=== PATIENT | male | born 1980 | race Caucasian/White ===

== ENCOUNTER 2019-09-23 18:27 | Emergency (ER) | payer MEDICAID ==
[~2019-09-23] VITALS: Ht 160 cm; Wt 57.0 kg
[2019-09-23 18:27] VITALS: BP 123/86
--- NOTE | 2019-09-23 18:27 | NUR ---
BIB [facility]-Pt being released from custody at [facility]. Pt placed on legal [facility] Legal hold reason stated that pt is not currently taking his medications and is paranoid as well as not having a plan on a place to stay. Pt currently appears mildly manic but cooperative with staff. Pt placed all his belongings and clothing into one bag that this RN labeled with pt info and secured in locker. Pt provided hospital gown to wear which he tied around his waist, stating that he did not want it over his shoulders. Pt requesting to have gurney removed from room and mattress placed on the floor. This RN removed gurney from room per pt request. Pt's room is secured, all safety measures observed. Pt entered bathroom and washed his hair in the sink, requesting toothbrush and toothpaste. This RN advised pt that he needs to be evaluated by the ER provider and then will be allowed to shower and perform oral hygiene if he would like to. Pt agreeable to this. Pt denies SI/HI at this time. POC discussed with pt. He verbalizes understanding and denies other needs.
--- NOTE | 2019-09-23 18:59 | NUR ---
Report to Katelin BARLOW.
--- NOTE | 2019-09-23 18:59 | NUR ---
Per social work supervisor, pa, and md collaboration, pt tbdc. Awaiting d/c orders to give pt belongings.
== END 2019-09-23 19:19 | disposition home or self-care (01) ==
LOC: ED 19:15
DX: F41.9 Anxiety disorder, unspecified (principal); Z72.9 Problem related to lifestyle, unspecified
CPT/HCPCS: 99283

== ENCOUNTER 2019-10-06 16:32 | Emergency (ER) | payer MEDICAID ==
[~2019-10-06] VITALS: Ht 167.6 cm; Wt 67.0 kg
[2019-10-06 16:36] VITALS: BP 127/78
--- NOTE | 2019-10-06 17:08 | NUR ---
PT FEELING SUICIDAL WITH HIGHLY LETHAL PLAN- STATES HE WANTS TO LAY ON THE TRAIN TRACKS. PT STATES HE IS FEELING DEPRESSED AND SUICIDAL AND LIKE HE WANTS TO END HIS LIFE. DENIES PAST MEDICAL HX AND PINA DRUG USE. PT TALKING AT FAST PACE AND SMILING WHILE DISCUSSING SUICIDE PLAN. PT CHANGED INTO GOWN- ALL BELONGINGS (ONE BAG) PLACED INTO SECURE LOCKER. ROOM [facility], SITTER IN HALLWAY. PT HAS VOIDED, URINE COLLECTED. PT SITTING ON GURNEY. STATES HE DOES NOT WANT A BLANKET OR WATER WHEN BOTH HAVE BEEN OFFERED BUT IS ASKING FOR FOOD. WILL ORDER FOOD WHEN OKAY'D BY . PT DENIES FURTHER NEEDS AT THIS TIME. NELLIE.
--- NOTE | 2019-10-06 17:56 | NUR ---
MD AT BEDSIDE ASSESSING PT NOW.
--- NOTE | 2019-10-06 18:09 | NUR ---
FABRICATION ENGINEER AT BEDSIDE NOW. FOOD ORDERED FOR PT.
--- NOTE | 2019-10-06 18:17 | NUR ---
PT PROVIDED WITH DINNER TRAY AT THIS TIME. BREATHYLIZED. SITTER AT BEDSIDE. ROOM SECURE. PT DENIES FURTHER NEEDS.
[2019-10-06 18:35] LABS: AMPHETAMINE SCREEN, URINE Negative (Negative); BARBITURATE SCREEN, URINE Negative (Negative); BENZODIAZEPINE SCREEN, URINE Negative (Negative); CANNABINOID SCREEN, URINE Positive (Negative); COCAINE SCREEN, URINE Negative (Negative); METHADONE SCREEN, URINE Negative (Negative); OPIATE SCREEN, URINE Negative (Negative)
[2019-10-06 18:41] LABS: MEAN CORPUSCULAR HEMOGLOBIN 31.4 pg (27.5-34.5); MEAN CORPUSCULAR VOLUME 95.3 fL (81-97); MEAN PLATELET VOLUME 7.8 fL (7.4-10.4); PLATELET COUNT 411 x10^3/uL (130-400); RED BLOOD COUNT 4.14 x10^6/uL (4.38-5.82); RED CELL DISTRIBUTION WIDTH 15.7 % (9.4-14.8)
[2019-10-06 18:48] LABS: ALBUMIN 3.6 g/dL (3.4-5.0); ANION GAP 7 mmol/L (5-15); CALCIUM 8.9 mg/dL (8.5-10.1); CHLORIDE 105 mmol/L (98-107); CREATININE 0.85 mg/dL (0.7-1.3)
[2019-10-06 18:59] LABS: SALICYLATE LEVEL < 1.7 mg/dL (2.8-20.0)
--- NOTE | 2019-10-06 19:03 | NUR ---
REPORT GIVEN TO CAIN LAUREN.
[2019-10-06 19:08] LABS: BASOPHILS # (AUTO) 0.06 x10^3/uL (0-0.1); BASOPHILS % (AUTO) 1 % (0-1); EOSINOPHILS % (AUTO) 2 % (1-7); LYMPHOCYTES # (AUTO) 2.28 x10^3/uL (1-3.4); LYMPHOCYTES % (AUTO) 20 % (22-44); MD SCAN; MONOCYTES # (AUTO) 0.71 x10^3/uL (0.2-0.8); MONOCYTES % (AUTO) 6 % (2-9); NEUTROPHILS % (AUTO) 72 % (42-75)
--- NOTE | 2019-10-06 23:10 | NUR ---
3E unable to auth patients insurance. Patient's info faxed to [facility], , and [facility] as patient has medicaid [facility].
--- NOTE | 2019-10-07 00:14 | NUR ---
Attempted twice to call [facility] for [facility] but was unsuccessful, no answer, only dial tone at the end of the call.
--- NOTE | 2019-10-07 00:51 | NUR ---
IVETTE auth [id number]
== END 2019-10-07 02:23 ==
LOC: ED 18:32
DX: F33.3 Major depressive disorder, recurrent, severe with psychotic symptoms (principal); F12.159 Cannabis abuse with psychotic disorder, unspecified; F17.210 Nicotine dependence, cigarettes, uncomplicated
CPT/HCPCS: 99285

== ENCOUNTER 2019-11-12 05:31 | Emergency (ER) | payer MEDICAID ==
[~2019-11-12] VITALS: Ht 177.8 cm; Wt 66.5 kg
--- NOTE | 2019-11-12 05:43 | NUR ---
DR. GUADARRAMA IN TO EVAL PT. PT. TO ED WITH C/O "NEED MY MEDS". PT. REPORTS DEPRESSION; DENIES SI/HI. STATES "I JUST NEED TO GET MY MEDS AND I DON'T THINK [facility] IS OPEN RIGHT NOW, I JUST NEED TO TALK TO A PSYCH DR." UNABLE TO PLACE PT. ON MONITORS AT THIS TIME PT. UNABLE TO FOCUS WHILE MD EVALUATING.
--- NOTE | 2019-11-12 05:50 | NUR ---
TECH TO BS FOR EKG. PT. STATES "YOU'RE NOT PUTTING THOSE MONITORS ON ME, I CAN REFUSE THEM." DISCUSSED NEED FOR EKG WITH PT. HR IS 136 IN TRAIGE; PT. AGREEABLE TO EKG BUT STATES "I STILL DON'T WANT THOSE ON ME." PT. RESTLESS AND MOVING AROUND NON-STOP. ALL BELONGINGS REMOVED AND PT. PLACED INTO GOWN. PT. AWARE OF NEED FOR URINE SAMPLE.
--- NOTE | 2019-11-12 05:52 | NUR ---
PT. CHANGED HIS STORY WHILE DR. GUADARRAMA AT AND IS NOW STATING THAT HE WISHES "TO LAY ON THE TRAIN TRACKS". STATES SI. "I JUST DIDN'T KNOW HOW TO SAY IT TO YOU BEFORE."
--- NOTE | 2019-11-12 05:59 | NUR ---
PT. REPORTS DRINKING A FEW BEERS TONIGHT; BREATHALYZER 0.063%. PT. STATES HE IS HOMELESS WITH NO JOB. DENIES ANY HX OF SA BUT STATES SI IN THE PAST. STATES "I JUST MOVED HERE FROM [place]". WHEN PT. QUESTIONED ABOUT PAST VISITS TO INCLUDE LATE SEPTEMBER HE STATES "WELL I WENT TO [place] FOR A FEW DAYS". PT. POOR HISTORIAN AND DOES NOT ANSWER STRAIGHT FORWARD QUESTIONS BY STAFF. EKG WAS DONE AND PRESENTED TO DR. GUADARRAMA. PT. CONTINUES TO REFUSE MONITORS DESPITE EXPLANATION. SITTER IN [place].
--- NOTE | 2019-11-12 06:08 | NUR ---
2 BAGS OF BELONGINGS LABELED AND PLACED IN LOCKER.
[2019-11-12 06:26] LABS: BASOPHILS # (AUTO) 0.02 x10^3/uL (0-0.1); BASOPHILS % (AUTO) 0 % (0-1); EOSINOPHILS % (AUTO) 0 % (1-7); LYMPHOCYTES # (AUTO) 0.95 x10^3/uL (1-3.4); LYMPHOCYTES % (AUTO) 14 % (22-44); MD NO; MEAN CORPUSCULAR HEMOGLOBIN 31.3 pg (27.5-34.5); MEAN CORPUSCULAR HGB CONC 33.1 g/dL (33.2-36.2); MEAN CORPUSCULAR VOLUME 94.6 fL (81-97); MONOCYTES # (AUTO) 0.33 x10^3/uL (0.2-0.8); MONOCYTES % (AUTO) 5 % (2-9); NEUTROPHILS # (AUTO) 5.49 x10^3/uL (1.8-6.8); NEUTROPHILS % (AUTO) 81 % (42-75); PLATELET COUNT 467 x10^3/uL (130-400); RED BLOOD COUNT 4.44 x10^6/uL (4.38-5.82); RED CELL DISTRIBUTION WIDTH 14.1 % (9.4-14.8)
--- NOTE | 2019-11-12 06:32 | NUR ---
PT. AGAIN ENCOURAGED TO PROVIDE URINE SAMPLE. WATER PROVIDED.
[2019-11-12 06:33] LABS: ALANINE AMINOTRANSFERASE 23 U/L (12-78); ANION GAP 9 mmol/L (5-15); CALCIUM 8.7 mg/dL (8.5-10.1); CHLORIDE 110 mmol/L (98-107); CREATININE 0.98 mg/dL (0.7-1.3); SALICYLATE LEVEL 1.8 mg/dL (2.8-20.0)
[2019-11-12 06:35] LABS: ALKALINE PHOSPHATASE 81 U/L (45-117); BILIRUBIN,TOTAL 0.3 mg/dL (0.2-1.0); TOTAL PROTEIN 7.9 g/dL (6.4-8.2)
--- NOTE | 2019-11-12 07:10 | NUR ---
BS REPORT TO CAIN CARTER. PT. AGAIN ENCOURAGED TO PROVIDE URINE SAMPLE. ADELAIDATER REMAINS IN [place].
--- NOTE | 2019-11-12 08:52 | NUR ---
PT PROVIDED WITH ADDITIONAL WATER IN EFFORTS TO OBATIN URINE SAMPLE. PT FREQUENLTY REMINDED OF NEED FOR URINE
--- NOTE | 2019-11-12 10:00 | NUR ---
UDS COLLECTED AND SENT TO LAB, PT OFFERED MEAL TRAY, PT DECLINED AT THIS TIME WILL WAIT FOR LUNCH. PT WITH SITTER IN VIEW OF PT. PT WITH NO NEEDS AT THIS TIME
[2019-11-12 10:12] LABS: AMPHETAMINE SCREEN, URINE Positive (Negative); BARBITURATE SCREEN, URINE Negative (Negative); BENZODIAZEPINE SCREEN, URINE Negative (Negative); CANNABINOID SCREEN, URINE Positive (Negative); COCAINE SCREEN, URINE Negative (Negative); METHADONE SCREEN, URINE Negative (Negative); OPIATE SCREEN, URINE Negative (Negative)
[2019-11-12] MEDS ORDERED: QUETIAPINE 100MG TABLET PO SCH (13:30)
--- NOTE | 2019-11-12 13:38 | NUR ---
JO VIRK IN TO EVAL PT, LH CONTINUED. PT ATE ALL OF MEAL TRAY
[2019-11-12] MEDS ORDERED: QUETIAPINE 100MG TABLET ONE (14:22)
--- NOTE | 2019-11-12 14:31 | NUR ---
PT REFUSING PO SEROQUEL ORDERED B PSYCH TANK OFFICER.
--- NOTE | 2019-11-12 16:45 | NUR ---
JO VIRK UPDATED ON PT REFUSAL OF MEDICATIONS. NAD NOTED AT THIS TIME. MEAL TRAY ORDERED FOR PT
--- NOTE | 2019-11-12 19:16 | NUR ---
Pt awake and resting on gurney. Pt denied offer for blanket.
--- NOTE | 2019-11-12 20:13 | NUR ---
3E UNABLE TO GET PRIOR AUTH AT THIS TIME PER JUDE BHAT. WILL FAX TO OTHER FACILITIES AT THIS TIME.
--- NOTE | 2019-11-12 20:18 | NUR ---
Attempted to call number and for insurance prior authoriation, no answer and dial tone at the end.
--- NOTE | 2019-11-12 20:22 | NUR ---
PACKET FAXED TO [facility] AND [facility] PATIENT HAS MEDICAID [place]ZABEL TREVIÑO
--- NOTE | 2019-11-12 20:51 | NUR ---
Pt continues to repositon self as needed. Sitter at bedside. Pt has refused multiple offers for blankets.
--- NOTE | 2019-11-12 22:35 | NUR ---
Pt resting on gurney. No distress noted. Sitter remains outside of room.
--- NOTE | 2019-11-12 22:46 | NUR ---
JAVIER FROM [facility] CALLED AND DR MAR WILL ACCEPT. PT TO BE TRANSPORTED AT 0100
--- NOTE | 2019-11-12 23:08 | NUR ---
HILARIO and [facility] called as patient has medicaid [facility]. Patient placed in will call until 1am as that is what [facility] asked for. Awaiting auth code from [facility] still.
[2019-11-12 23:22] VITALS: BP 119/52
--- NOTE | 2019-11-12 23:22 | NUR ---
Pt alert and sitting up on gurney. Pt cooperative with VS check. Sitter remains in view of pt.
--- NOTE | 2019-11-13 00:46 | NUR ---
Pt seen repositioning himself as needed. Pt cooperative with staff. Sitter remains in view of pt.
--- NOTE | 2019-11-13 01:00 | NUR ---
Called [facility] and no auth code yet from [facility]. Called [facility] and they have all patients info and will call [facility] TEO.
--- NOTE | 2019-11-13 01:11 | NUR ---
[facility] auth code: [id number], ETA [id number].
--- NOTE | 2019-11-13 01:28 | NUR ---
Pt remains awake and alert on gurney. Sitter remains in view of pt.
--- NOTE | 2019-11-13 03:15 | NUR ---
Pt transferred to [facility] via [facility]. Report given to [facility] paramedics. Pt awake, alert and ambulatory. Pt belongings given to [facility] regulator inspector. Pt ambulated out of ER with paramedics.
== END 2019-11-13 03:18 | disposition home or self-care (01) ==
LOC: ED 06:22
DX: F33.9 Major depressive disorder, recurrent, unspecified (principal); F15.14 Other stimulant abuse with stimulant-induced mood disorder; R00.0 Tachycardia, unspecified; F17.200 Nicotine dependence, unspecified, uncomplicated
CPT/HCPCS: 36415; 80053; 80307; 85025; 93005; 99284

== ENCOUNTER 2019-11-27 17:52 | Emergency (ER) | payer MEDICAID ==
[~2019-11-27] VITALS: Ht 165.1 cm; Wt 80.0 kg
[2019-11-27 18:11] VITALS: BP 111/76
--- NOTE | 2019-11-27 18:23 | NUR ---
PT PLACED IN ROOM WITH ALL SUPPLIES SECURED BEHIND PULL DOWN DOORS AND BELONGINGS SECURED. PT IN VIEW OF SITTER.
[2019-11-27] MEDS ORDERED: LORazepam 1MG TABLET PO ONE (18:30)
[2019-11-27 18:53] LABS: ALANINE AMINOTRANSFERASE 33 U/L (12-78); ALBUMIN 3.6 g/dL (3.4-5.0); ANION GAP 3 mmol/L (5-15); BASOPHILS # (AUTO) 0.04 x10^3/uL (0-0.1); BASOPHILS % (AUTO) 0 % (0-1); CALCIUM 8.6 mg/dL (8.5-10.1); CHLORIDE 109 mmol/L (98-107); EOSINOPHILS # (AUTO) 0.13 x10^3/uL (0-0.4); EOSINOPHILS % (AUTO) 1 % (1-7); LYMPHOCYTES # (AUTO) 1.75 x10^3/uL (1-3.4); LYMPHOCYTES % (AUTO) 17 % (22-44); MD NO; MEAN CORPUSCULAR HEMOGLOBIN 30.8 pg (27.5-34.5); MEAN CORPUSCULAR HGB CONC 33.4 g/dL (33.2-36.2); MEAN CORPUSCULAR VOLUME 92.1 fL (81-97); MEAN PLATELET VOLUME 7.7 fL (7.4-10.4); MONOCYTES # (AUTO) 0.58 x10^3/uL (0.2-0.8); MONOCYTES % (AUTO) 6 % (2-9); NEUTROPHILS % (AUTO) 75 % (42-75); PLATELET COUNT 492 x10^3/uL (130-400); RED BLOOD COUNT 4.71 x10^6/uL (4.38-5.82); RED CELL DISTRIBUTION WIDTH 13.8 % (9.4-14.8); SALICYLATE LEVEL < 1.7 mg/dL (2.8-20.0)
[2019-11-27 18:55] LABS: ALKALINE PHOSPHATASE 81 U/L (45-117); BILIRUBIN,TOTAL 0.2 mg/dL (0.2-1.0); TOTAL PROTEIN 7.7 g/dL (6.4-8.2)
--- NOTE | 2019-11-27 18:58 | NUR ---
Pt bedside report from Marie rn. This rn to assume care of pt. Pt sleeping comfortably on [facility]. Rr even and unlabored. Roller doors in place, sitter in hallway. Pt given meal tray per request and warm blanket. Tb medicated per dec.
[2019-11-27] MEDS ORDERED: LORazepam 1MG TABLET ONE (18:59)
--- NOTE | 2019-11-27 19:14 | NUR ---
Pt does state he has SI tonight. Denies any evident plans to this rn. Denies any hi to this rn. Pt appears to be calm and collected at this time. Pt put on hold and stated they do not know where they are going to go if they are d/c and "that makes me want to hurt myself..... you dont know what they do to you in long-term man, its shit i dont ever want to see before."
--- NOTE | 2019-11-27 19:23 | NUR ---
A sent to lab at this time.
[2019-11-27 19:45] LABS: AMPHETAMINE SCREEN, URINE Negative (Negative); BARBITURATE SCREEN, URINE Negative (Negative); BENZODIAZEPINE SCREEN, URINE Negative (Negative); CANNABINOID SCREEN, URINE Positive (Negative); COCAINE SCREEN, URINE Negative (Negative); METHADONE SCREEN, URINE Negative (Negative); OPIATE SCREEN, URINE Negative (Negative)
--- NOTE | 2019-11-27 19:55 | NUR ---
SOC REQUESTED FOR TELEPSYCH.
--- NOTE | 2019-11-27 20:23 | NUR ---
Pt given sprite in styrofoam cup and crackers per request.
--- NOTE | 2019-11-27 21:00 | NUR ---
Pt sleeping comfortably on gurney. Rr even and unlabored. Nadn.
--- NOTE | 2019-11-27 21:45 | NUR ---
SOC updated on pt. robot in room for telepsych at this time.
--- NOTE | 2019-11-27 21:46 | NUR ---
Pt given more sprite in styrofoam cup per request. No other immediate needs.
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
--- NOTE | 2019-11-27 23:09 | NUR ---
Pt sleeping comfortably on gurney. Rr even and unlabored. Nadn.
[2019-11-27] MEDS ORDERED: ZIPRASIDONE 20MG CAPSULE ONE (23:13)
[2019-11-27] MEDS ORDERED: ZIPRASIDONE 40MG CAPSULE PO SCH (23:30)
--- NOTE | 2019-11-28 00:44 | NUR ---
Given sandwich per request. Report to Josr messina. To be tx after hospitalist orders.
== END 2019-11-28 00:45 ==
LOC: ED 18:26
DX: F12.150 Cannabis abuse with psychotic disorder with delusions (principal); F22 Delusional disorders; F17.200 Nicotine dependence, unspecified, uncomplicated; F20.9 Schizophrenia, unspecified; F32.9 Major depressive disorder, single episode, unspecified
CPT/HCPCS: 36415; 80053; 80307; 85025; 99285

== ENCOUNTER 2019-11-28 00:16 | Inpatient (IN) | payer MEDICAID ==
[~2019-11-28] VITALS: Ht 165.1 cm; Wt 80.0 kg
[2019-11-28] MEDS ORDERED: DOCUSATE 100 MG CAPSULE PO PRN (00:30)
[2019-11-28] MEDS ORDERED: POLYETHYLENE GLYCOL 17 GM PACKET PO PRN (00:30)
[2019-11-28] MEDS ORDERED: BISACODYL 10 MG SUPP PR PRN (00:30)
[2019-11-28] MEDS ORDERED: ACETAMINOPHEN 325 MG TABLET PO PRN (00:30)
[2019-11-28 01:45] VITALS: BP 110/79
[2019-11-28 02:36] LABS: MICROSCOPIC NOT IND
[2019-11-28 02:39] LABS: CULTURE INDICATED? NO
[2019-11-28 07:22] VITALS: BP 110/70
[2019-11-28] MEDS ORDERED: NICOTINE 21 MG/24 HR PATCH.TD24 TD SCH (15:00)
[2019-11-28] MEDS: QUETIAPINE 25MG TABLET PO PRN ×2 (15:08→21:54)
[2019-11-28] MEDS: ACAMPROSATE 333 MG TABLET.DR PO SCH ×2 (16:49→20:41)
[2019-11-28] MEDS: QUETIAPINE 200 MG TABLET PO SCH (20:01)
[2019-11-28 20:02] VITALS: BP 113/82
[2019-11-29 06:46] VITALS: BP 125/73
[2019-11-29] MEDS ORDERED: ZIPRASIDONE 20 MG INJ IM ONE ×2 (07:20→07:30)
[2019-11-29 07:22] LABS: ANION GAP 6 mmol/L (5-15); CALCIUM 8.9 mg/dL (8.5-10.1); CHLORIDE 103 mmol/L (98-107)
[2019-11-29] MEDS: ACAMPROSATE 333 MG TABLET.DR PO SCH ×4 (07:27→21:03)
[2019-11-29 07:28] LABS: BASOPHILS # (AUTO) 0.07 x10^3/uL (0-0.1); BASOPHILS % (AUTO) 1 % (0-1); EOSINOPHILS # (AUTO) 0.19 x10^3/uL (0-0.4); EOSINOPHILS % (AUTO) 3 % (1-7); LYMPHOCYTES # (AUTO) 1.95 x10^3/uL (1-3.4); LYMPHOCYTES % (AUTO) 26 % (22-44); MD NO; MEAN CORPUSCULAR HEMOGLOBIN 30.6 pg (27.5-34.5); MEAN CORPUSCULAR HGB CONC 33.1 g/dL (33.2-36.2); MEAN CORPUSCULAR VOLUME 92.4 fL (81-97); MEAN PLATELET VOLUME 7.9 fL (7.4-10.4); MONOCYTES # (AUTO) 0.45 x10^3/uL (0.2-0.8); MONOCYTES % (AUTO) 6 % (2-9); NEUTROPHILS # (AUTO) 4.81 x10^3/uL (1.8-6.8); NEUTROPHILS % (AUTO) 64 % (42-75); PLATELET COUNT 441 x10^3/uL (130-400); RED BLOOD COUNT 4.81 x10^6/uL (4.38-5.82); RED CELL DISTRIBUTION WIDTH 13.6 % (9.4-14.8)
[2019-11-29] MEDS: QUETIAPINE 25MG TABLET PO PRN ×3 (07:28→19:28)
[2019-11-29 07:34] LABS: CHOL/HDL RATIO 3.3; CHOLESTEROL, TOTAL 219 mg/dL (140-239); CREATININE 0.94 mg/dL (0.7-1.3); FREE T4 (FREE THYROXINE) 1.12 ng/dL (0.76-1.46); HDL CHOL % 30 % (26-37); HDL CHOLESTEROL (DIRECT) 66 mg/dL (40-60); LDL CHOLESTEROL,CALCULATED 116 mg/dL (54-169); LDL/HDL RATIO 1.8 (0.5-3.0); TRIGLYCERIDES 184 mg/dL (50-200); VLDL CHOLESTEROL 37 mg/dL (0-25)
[2019-11-29] MEDS ORDERED: NICOTINE 21 MG/24 HR PATCH.TD24 TD SCH (15:00)
[2019-11-29 19:29] VITALS: BP 131/79
[2019-11-29] MEDS ORDERED: LORazepam 1MG TABLET ONE (19:48)
[2019-11-29] MEDS ORDERED: ZIPRASIDONE 40MG CAPSULE ONE (19:48)
[2019-11-29] MEDS: QUETIAPINE 200 MG TABLET PO SCH (20:18)
[2019-11-29] MEDS ORDERED: ZIPRASIDONE 40MG CAPSULE PO ONE (20:30)
[2019-11-29] MEDS ORDERED: LORazepam 1MG TABLET PO ONE (20:30)
[2019-11-30] MEDS: ACAMPROSATE 333 MG TABLET.DR PO SCH (08:40)
[2019-11-30 08:46] VITALS: BP 106/76
== END 2019-11-30 10:00 | disposition left against medical advice (07) | DRG 885 ==
LOC: 3E 01:11
PROVIDERS: ADMIT Psychiatry & Neurology Psychosomatic Medicine; ATTEND Psychiatry & Neurology Psychosomatic Medicine
DX: F20.9 Schizophrenia, unspecified (principal); R45.851 Suicidal ideations; F17.210 Nicotine dependence, cigarettes, uncomplicated; F32.9 Major depressive disorder, single episode, unspecified; F12.959 Cannabis use, unspecified with psychotic disorder, unspecified; S05.12XA Contusion of eyeball and orbital tissues, left eye, initial encounter; X58.XXXA Exposure to other specified factors, initial encounter; Y93.89 Activity, other specified; Y92.89 Other specified places as the place of occurrence of the external cause; Y99.8 Other external cause status
CPT/HCPCS: 36415; 71045; 80048; 80061; 81003; 84439; 84443; 85025; 93005; J3486

== ENCOUNTER 2019-12-01 22:42 | Emergency (ER) | payer MEDICAID ==
[~2019-12-01] VITALS: Ht 167.6 cm; Wt 68.2 kg
[2019-12-01 22:56] VITALS: BP 112/78
--- NOTE | 2019-12-01 23:03 | NUR ---
BRAZING MACHINE OPERATOR: PT SITTING IN CHAIR BY CHARGE STATION. PT IS ABLE TO SAFELY SIT IN CHAIR. PT UNDER CONSTANT WATCH.
--- NOTE | 2019-12-01 23:16 | NUR ---
Pt moved to room 41 and suicide safety precautions implemented at this time. Pt generically si/hi. Pt states he does not have a plan for either but "i just want to see a psychiatrist". Pt refuses to divulge further information to this rn. This rn had pt last time and seen for same complaint and admit to 3E.
--- NOTE | 2019-12-01 23:53 | NUR ---
Pt consistently wandering out of room and to discharge coordinator station. Pt easily redirectable into room and informed to stay in room.
[2019-12-02] LABS: ALANINE AMINOTRANSFERASE 42 U/L (12-78); ALBUMIN 3.8 g/dL (3.4-5.0); ANION GAP 9 mmol/L (5-15); CALCIUM 8.4 mg/dL (8.5-10.1); CHLORIDE 105 mmol/L (98-107); CREATININE 1.02 mg/dL (0.7-1.3); MEAN CORPUSCULAR HEMOGLOBIN 30.6 pg (27.5-34.5); MEAN CORPUSCULAR HGB CONC 33.1 g/dL (33.2-36.2); MEAN CORPUSCULAR VOLUME 92.6 fL (81-97); PLATELET COUNT 479 x10^3/uL (130-400); RED BLOOD COUNT 4.58 x10^6/uL (4.38-5.82); RED CELL DISTRIBUTION WIDTH 13.6 % (9.4-14.8)
[2019-12-02 00:01] LABS: SALICYLATE LEVEL < 1.7 mg/dL (2.8-20.0)
[2019-12-02 00:02] LABS: ALKALINE PHOSPHATASE 104 U/L (45-117); BILIRUBIN,TOTAL 0.3 mg/dL (0.2-1.0); TOTAL PROTEIN 8.1 g/dL (6.4-8.2)
--- NOTE | 2019-12-02 00:11 | NUR ---
Pt resting comfortably on gurney. Rr even and unlabored. Nadn.
[2019-12-02 00:38] LABS: BASOPHILS # (AUTO) 0.04 x10^3/uL (0-0.1); BASOPHILS % (AUTO) 0 % (0-1); EOSINOPHILS # (AUTO) 0.04 x10^3/uL (0-0.4); EOSINOPHILS % (AUTO) 0 % (1-7); LYMPHOCYTES # (AUTO) 2.67 x10^3/uL (1-3.4); LYMPHOCYTES % (AUTO) 16 % (22-44); MD SCAN; MONOCYTES # (AUTO) 0.63 x10^3/uL (0.2-0.8); MONOCYTES % (AUTO) 4 % (2-9); NEUTROPHILS # (AUTO) 13.07 x10^3/uL (1.8-6.8); NEUTROPHILS % (AUTO) 80 % (42-75)
--- NOTE | 2019-12-02 01:00 | NUR ---
Report to Osmar BARLOW
--- NOTE | 2019-12-02 01:03 | NUR ---
Patient yelling into hallway demanding box lunch. RN returned to bedside with nirmala galoers. Patient continues to eat them, but still yells into hallway. Security called to inform patient to control his impulses as his verbal behaviors and body language continue to be aggressive. Patient agreeable at the moment, sitter in hallway able to visualize patient.
[2019-12-02 05:24] LABS: AMPHETAMINE SCREEN, URINE Negative (Negative); BARBITURATE SCREEN, URINE Negative (Negative); BENZODIAZEPINE SCREEN, URINE Negative (Negative); CANNABINOID SCREEN, URINE Positive (Negative); COCAINE SCREEN, URINE Negative (Negative); METHADONE SCREEN, URINE Negative (Negative); OPIATE SCREEN, URINE Negative (Negative)
== END 2019-12-02 06:21 | disposition home or self-care (01) ==
LOC: ED 12-02 04:05
DX: F10.220 Alcohol dependence with intoxication, uncomplicated (principal); Y90.0 Blood alcohol level of less than 20 mg/100 ml
CPT/HCPCS: 36415; 80053; 80307; 85025; 99283